=== PATIENT | female | born 1935 | race Caucasian/White ===

== ENCOUNTER 2017-07-06 12:10 | Emergency (ER) | payer MEDICARE ==
[~2017-07-06] VITALS: Ht 157.4 cm; Wt 54.4 kg
[~2017-07-06 12:10] MED LIST: GLUCOPHAGE1000 MG PO; GLUCOTROL XL2.5 MG PO; LIPITOR20 MG PO; LOPRESSOR50 MG PO; MONOPRIL10 MG PO
[2017-07-06 12:34] LABS: HEMOGLOBIN 8.3 g/dl (12.0-16.0); MEAN CELL VOLUME 114.4 fl (81.0-99.0); MEAN CORPUSCULAR HGB 35.2 pg (27.0-31.0); MEAN CORPUSCULAR HGB CONC 30.7 g/dl (33.0-37.0); MEAN PLATELET VOLUME 9.6 fl (9.6-12.3); PLATELET COUNT AUTOMATED 354 10*3/uL (130-400); RED BLOOD COUNT 2.36 10*6/uL (4.10-5.10); RED CELL DISTRI WIDTH 20.9 % (0-14.5); WHITE BLOOD COUNT 7.1 10*3/uL (4.8-10.8)
[2017-07-06 12:55] LABS: ALKALINE PHOSPHATASE 101 U/L (45-117); BUN 18 mg/dl (7-24); CHLORIDE 107 mmol/L (98-107); CREATININE 1.36 mg/dL (0.55-1.02); POTASSIUM 4.6 mmol/L (3.5-5.1); SGOT/AST 14 IU/L (3-35); SGPT/ALT 15 U/L (12-78); SODIUM 139 mmol/L (136-145); TOTAL PROTEIN 5.9 gm/dL (6.4-8.2)
[2017-07-06 12:56] LABS: TROPONIN I < 0.015 ng/ml (<0.045)
[2017-07-06 13:14] LABS: PLATELET SUFFICIENCY NORMAL (NORMAL); TOTAL CELLS COUNTED 100 #CELLS
[2017-07-06 13:15] LABS: POLYCHROMASIA SLIGHT
[2017-07-06 13:27] LABS: BILIRUBIN NEGATIVE (NEGATIVE); BLOOD NEGATIVE (NEGATIVE); CLARITY SL CLOUDY (CLEAR); COLOR YELLOW (YELLOW); GLUCOSE NEGATIVE (NEGATIVE); KETONE TRACE (NEGATIVE); LEUKO ESTERASE 1+ (NEGATIVE); NITRITE NEGATIVE (NEGATIVE); PH 5.5 (5.0-9.0); SPECIFIC GRAVITY 1.025 (1.005-1.030); UROBILINOGEN 0.2 E.U./dl (0.2-1.0)
[2017-07-06 13:37] LABS: BACTERIA 2+; EPITHELIAL CELLS 21-30
== END 2017-07-06 14:35 | disposition home or self-care (01) ==
LOC: ED 12:10
PROVIDERS: Emergency Medicine
DX: R55 Syncope and collapse (principal); Z90.710 Acquired absence of both cervix and uterus; Z79.899 Other long term (current) drug therapy

== ENCOUNTER 2020-01-22 16:10 | Emergency (ER) | payer MEDICARE ==
[~2020-01-22 16:10] MED LIST changes: +B12,B-12,B 12500 MC1 PO; +PHARMASSURE FO0.4 MG PO
[2020-01-22 16:56] LABS: BASO % 0.2 % (0.0-1.0); EOS # 0.1 10*3/uL (0.0-0.4); EOS % 1.4 % (1.0-4.0); HEMATOCRIT 28.9 % (37.0-47.0); LYMPH % 18.2 % (27.0-41.0); MEAN CORPUSCULAR HGB 28.7 pg (27.0-31.0); MEAN CORPUSCULAR HGB CONC 31.1 g/dl (33.0-37.0); MEAN PLATELET VOLUME 9.1 fl (9.6-12.3); MONO # 0.5 10*3/uL (0.1-1.0); MONO % 8.3 % (3.0-9.0); NEUT # 4.1 10*3/uL (2.3-7.9); NEUT % 71.7 % (47.0-73.0); PLATELET COUNT AUTOMATED 307 10*3/uL (130-400); RED BLOOD COUNT 3.14 10*6/uL (4.10-5.10); RED CELL DISTRI WIDTH 17.5 % (0-14.5); WHITE BLOOD COUNT 5.7 10*3/uL (4.8-10.8)
[2020-01-22 17:14] LABS: ALBUMIN 3.1 gm/dl (3.1-4.5); ALKALINE PHOSPHATASE 173 U/L (45-117); BUN 13 mg/dl (7-24); CHLORIDE 101 mmol/L (98-107); POTASSIUM 4.1 mmol/L (3.5-5.1); SGOT/AST 26 IU/L (3-35); SGPT/ALT 14 U/L (12-78); SODIUM 132 mmol/L (136-145); TOTAL PROTEIN 6.7 gm/dL (6.4-8.2); TROPONIN I < 0.015 ng/ml (<0.045)
[2020-01-22 17:18] LABS: ACT PARTIAL THROMBO TIME 22.8 SECONDS (20.0-32.1)
[2020-01-22 18:08] LABS: BILIRUBIN NEGATIVE (NEGATIVE); BLOOD NEGATIVE (NEGATIVE); CLARITY SL CLOUDY (CLEAR); COLOR YELLOW (YELLOW); GLUCOSE NEGATIVE (NEGATIVE); KETONE NEGATIVE (NEGATIVE); LEUKO ESTERASE NEGATIVE (NEGATIVE); NITRITE NEGATIVE (NEGATIVE); UROBILINOGEN 0.2 E.U./dl (0.2-1.0)
[2020-01-22 18:10] LABS: BACTERIA 1+; EPITHELIAL CELLS 41-50
== END 2020-01-22 21:45 | disposition short-term general hospital (02) ==
LOC: ED 16:10
PROVIDERS: Emergency Medicine
DX: G91.2 (Idiopathic) normal pressure hydrocephalus (principal); E78.00 Pure hypercholesterolemia, unspecified; I12.9 Hypertensive chronic kidney disease with stage 1 through stage 4 chronic kidney disease, or unspecified chronic kidney disease; E11.22 Type 2 diabetes mellitus with diabetic chronic kidney disease; N18.3 Chronic kidney disease, stage 3 (moderate); Z79.899 Other long term (current) drug therapy; Z90.710 Acquired absence of both cervix and uterus

== ENCOUNTER 2020-04-17 18:39 | Inpatient (IN) | payer MEDICARE ==
[2020-04-17] VITALS (10 sets, daily range): BP systolic 66–176; BP diastolic 41–84
[~2020-04-17] VITALS: Ht 157.5 cm; Wt 53.3 kg
--- NOTE | 2020-04-17 18:52 | NUR ---
LAB AT BEDSIDE.
--- NOTE | 2020-04-17 18:58 | NUR ---
EMESIS X2 YELLOW BILE.
[2020-04-17 19:13] LABS: MEAN CELL VOLUME 92.1 fl (81.0-99.0); MEAN CORPUSCULAR HGB 27.5 pg (27.0-31.0); MEAN CORPUSCULAR HGB CONC 29.9 g/dl (33.0-37.0); MEAN PLATELET VOLUME 9.6 fl (9.6-12.3); PLATELET COUNT AUTOMATED 184 10*3/uL (130-400); RED BLOOD COUNT 1.78 10*6/uL (4.10-5.10); WHITE BLOOD COUNT 5.9 10*3/uL (4.8-10.8)
[2020-04-17 19:17] LABS: HEMATOCRIT 16.4 % (37.0-47.0)
--- NOTE | 2020-04-17 19:24 | NUR ---
HEMOGLOBIN OF 4.9 HCT: 16.4
[2020-04-17 19:29] LABS: ACT PARTIAL THROMBO TIME 38.3 SECONDS (20.0-32.1); INTERNATIONAL NORM RATIO 1.4 (2.0-3.5)
[2020-04-17 19:32] LABS: ALBUMIN 1.7 gm/dl (3.1-4.5); ALKALINE PHOSPHATASE 56 U/L (45-117); BUN 20 mg/dl (7-24); CHLORIDE 122 mmol/L (98-107); CPK 40 U/L (26-192); CREATININE 1.09 mg/dL (0.55-1.02); SGOT/AST 9 IU/L (3-35); SGPT/ALT 17 U/L (12-78); TOTAL PROTEIN 3.8 gm/dL (6.4-8.2)
[2020-04-17 19:37] LABS: TOTAL CELLS COUNTED 100 #CELLS
[2020-04-17 19:39] LABS: BURR CELLS MODERATE; PLATELET SUFFICIENCY NORMAL (NORMAL); POTASSIUM 2.8 mmol/L (3.5-5.1); SODIUM 146 mmol/L (136-145)
[2020-04-17 19:40] LABS: TROPONIN I < 0.015 ng/ml (<0.045)
--- NOTE | 2020-04-17 20:01 | NUR ---
PT IN CT AT THIS TIME.
--- NOTE | 2020-04-17 20:20 | NUR ---
PT BACK FROM CT. HEMOCULT NEGATIVE.
--- NOTE | 2020-04-17 20:40 | NUR ---
[facility] CALLED TO SAY THEY NEED MORE TIME BEFORE PT COMES UPSTAIRS.
--- NOTE | 2020-04-17 20:46 | NUR ---
PT FAMILY DENIES WOUNDS. NO WOUNDS SEEN DURING EXAM.
--- NOTE | 2020-04-17 21:04 | NUR ---
CALLED [facility] WHO REPORTS THEY NEED MORE TIME BEFORE PT TRANSPORT.
[2020-04-17 21:07] LABS: BILIRUBIN Negative; BLOOD Negative (Negative); CLARITY Clear (Clear); COLOR Yellow (Yellow); GLUCOSE Negative; KETONE Negative; LEUKO ESTERASE 1+ (Negative); NITRITE Negative (Negative)
[2020-04-17 21:12] LABS: RBC 0-2 rbc/hpf (0-2)
[2020-04-17 21:13] LABS: BACTERIA 1+; MUCOUS 1+
--- NOTE | 2020-04-17 21:24 | NUR ---
PT ATTEMPTING TO GET OUT OF BED. REPEATING THAT SHE HAS TO URINATE. EXPLAINED TO PT SHE HAS HASSAN IN AND SHE IS ABLE TO URINATE WHEN SHE WANTS. PT APPEARS CONFUSED. WILL CONTINUE TO MONITOR.
--- NOTE | 2020-04-17 21:30 | NUR ---
A 84, admitted to [facility], under the services of JOSÉ MIGUEL Echevarria DO with a diagnosis of ACUTE BLOOD LOSS, ANEMIA. Chief complaint is FOUND ON FLOOR IN BATHROOM AT [facility]. Patient arrived via stretcher from ER. Monitor applied. Initial assessment completed. Vital signs taken and recorded. JOSÉ MIGUEL ECHEVARRIA DO notified of admission to the unit. Orders received. See assessment for past medical history, medications and allergies. Patient and/or family oriented to unit. [facility] visitation policy reviewed. Clothing/patient valuable form completed. IRENE MAURO
--- NOTE | 2020-04-17 22:02 | NUR ---
PT. UNSURE OF MEDICATIONS, UNABLE TO VERIFY AT THIS TIME.
[2020-04-18] VITALS (22 sets, daily range): BP systolic 142–181; BP diastolic 54–87
--- NOTE | 2020-04-18 05:20 | NUR ---
DR BRITT NOTIFIED OF BP 181/79. NEW ORDERS RECEIVED.
--- NOTE | 2020-04-18 06:15 | NUR ---
DR LOWE CALLED ABOUT MORNING LABS AND ORDER TO WAIT TO OBTAIN LABS WHEN BLOOD IS DONE INFUSING.
--- NOTE | 2020-04-18 07:39 | NUR ---
Shift chart check completed.24 HR chart check completed.
--- NOTE | 2020-04-18 07:45 | NUR ---
DR RAMOS NOTIFIED OF CONSULT BY BARREL PLANER. NO NEW ORDERS. TRANSFUSION COMPLETE AT 0745.
--- NOTE | 2020-04-18 07:49 | NUR ---
ON ASSESSMENT PATIENT IS RESTING ON HER SIDE IN BED, OCCASIONAL HIGH PITCHED WHIMPER BUT WHEN ASKED DOESN'T IDENTIFY ANY CERTAIN AREA OF PAIN. MLC INTACT RIJ. BED EXIT ALARM INTACT. HASSAN PATENT YELLOW URINE. ON QUESTIONING PATIENT UNABLE TO TELL ME WHERE SHE IS OR WHY SHE'S HERE. I DID ASK WHAT SHE TAKES FOR PAIN AT HOME AND SHE SAYS "ADVIL". WHEN I ASK HOW OFTEN SHE SAID "WHENEVER IT HURTS", BUT CAN'T BE ANY MORE SPECIFIC THAN THAT. SEE ALL APPROPRIATE INTERVENTIONS.
--- NOTE | 2020-04-18 08:13 | NUR ---
Occupational therapy order and nursing screen received. Will follow up with patient for completion of an OT evaluation. Thank you. Margie Rubalcava, OTR/L
[2020-04-18] MEDS ORDERED: LISINOPRIL10 M1 PO (08:47)
[2020-04-18] MEDS ORDERED: HYDRALAZINE HYD50 MG PO (08:48)
--- NOTE | 2020-04-18 08:50 | NUR ---
PHYSICAL THERAPY Nursing screen received and chart reviewed. Physical therapy order received. Will follow to complete PT evaluation. Thank you. Shayna Pope,PT,DPT
[2020-04-18] MEDS ORDERED: ADVIL200 MG PO (08:51)
--- NOTE | 2020-04-18 08:55 | NUR ---
I PHONED PT'S DAUGHTER BEAU AND MEDS RECONCILED WITH HER.
--- NOTE | 2020-04-18 09:00 | NUR ---
PHONE CONVERSATION WITH PT'S DAUGHTER ALSO REVEALS THAT DAUGHTER HAS CONCERNS ABOUT PT RETURNING TO HER HOME AGAIN. SHE SAID PT "TAKES NO MEDS ON HER OWN" AND HAS "[place]ALLY [place] IN THE PAST FEW MONTHS". SHE HAD BEEN FOUND "TURNING KITCHEN STOVE ON AND GOING TO BED BECAUSE SHE'S CHILLY." THIS WAS RELAYED TO THE MEDICAL TEAM.
--- NOTE | 2020-04-18 09:07 | NUR ---
ECHO BEING DONE AT THE BEDSIDE. , NURSE PRACTITIONER FOR DR RAMOS HAS VISITED, PLAN FOR EGD TOMORROW.
--- NOTE | 2020-04-18 10:32 | NUR ---
Spoke to daughter, Halley, regarding discharge planning. She states her mother lives at home alone and her and her brother stop over multiple times a day to check on her. Halley states she sets up her mother's medications and makes sure she takes them. Mother has a cane and a walker but refuses to use them. Daughter states her mother was in [facility] in January and was discharged to [facility] and [facility] when a bed became available. She states since her mother was in the hospital in January it has been a steady decline. She said she sets her mother's furnace to 75 degrees because she is always cold and was told by therapy she was turning the gas stove on and then going to sleep for the warmth. Daughter has lunch delivered as her mother will not cook for herself and then she brings her other meals. She states her mother will dress herself but will dress herself in the same clothes until someone tells her to change them. She states her and her brother were talking last night about the possibility of senior living placement. They are unsure whether assisted living or nursing facility. Discussed short term rehab and she is agreeable. When provided with a list of facilities she chose [facility] as that is close to where the patient lives. Discussed if family was to decide on LTC then the facility of their choice would start the LTC process. media planner / buyer/hoe worker notified.
--- NOTE | 2020-04-18 10:33 | NUR ---
PT ACCOMPANIED TO/FROM RADIOLOGY FOR CT ABD/PELVIS WITH IV CONTRAST. TOLERATED WELL. POSITIONED FOR COMFORT, NO BM'S AT THIS TIME.
--- NOTE | 2020-04-18 10:45 | NUR ---
Patient and family requesting a referral to [facility]. Contacted facilitly and faxed initial referral. Will wait on physical therapy eval when patient is able to participate and covid test results. Waiting on review
[2020-04-18 11:26] LABS: BASO % 0.1 % (0.0-1.0); EOS % 0.1 % (1.0-4.0); HEMATOCRIT 39.2 % (37.0-47.0); LYMPH # 0.9 10*3/uL (1.3-4.4); LYMPH % 8.2 % (27.0-41.0); MEAN CORPUSCULAR HGB 28.9 pg (27.0-31.0); MEAN CORPUSCULAR HGB CONC 33.4 g/dl (33.0-37.0); MEAN PLATELET VOLUME 9.5 fl (9.6-12.3); MONO # 0.9 10*3/uL (0.1-1.0); MONO % 8.5 % (3.0-9.0); NEUT # 8.9 10*3/uL (2.3-7.9); NEUT % 82.8 % (47.0-73.0); RED BLOOD COUNT 4.53 10*6/uL (4.10-5.10); RED CELL DISTRI WIDTH 16.3 % (0-14.5); WHITE BLOOD COUNT 10.8 10*3/uL (4.8-10.8)
[2020-04-18 11:28] LABS: MEAN CELL VOLUME 86.5 fl (81.0-99.0); PLATELET COUNT AUTOMATED 234 10*3/uL (130-400)
[2020-04-18 11:43] LABS: ALBUMIN 2.6 gm/dl (3.1-4.5); CREATININE 1.66 mg/dL (0.55-1.02); TOTAL PROTEIN 5.8 gm/dL (6.4-8.2)
--- NOTE | 2020-04-18 11:46 | NUR ---
[facility] CALLED/TALKED WITH DR COMBS WITH RESULTS OF CT ABDOMEN AND HE HAS CALLED DR CARDOSO. DR RAMOS HAS VISITED.
[2020-04-18 11:50] LABS: THYROID STIM HORMONE (HS) 2.7 uIU/ml (0.358-4.75)
--- NOTE | 2020-04-18 11:51 | NUR ---
PHYSICAL THERAPY Addressed PT order this date. Spoke with [facility] regarding patient. Patient is not medically appropriate and may be transfered to another facility for further care. Discharge skilled PT orders at this time. Shayna Pope,PT,DPT
[2020-04-18 12:03] LABS: POTASSIUM 5.8 mmol/L (3.5-5.1)
--- NOTE | 2020-04-18 12:12 | NUR ---
OT NOTE Occupational therapy order received and chart reviewed. Spoke with primary nurse Caitie CONRAD in [facility]. Per discussion with Caitie CONRAD, patient is not medically appropriate for an OT evaluation and is a possible transfer for a higher level of care. Will discharge OT orders at this time. Thank you. Margie Rubalcava, OTR/L
[2020-04-18 12:26] LABS: VITAMIN D, 25-HYDROXY 13.7 ng/mL (30-100)
--- NOTE | 2020-04-18 13:06 | NUR ---
ARRANGEMENTS WERE BEING MADE TO TRANSFER PT TO [facility]. DAUGHTER CALLED BACK AND SPOKE WITH DR CARDOSO. PT WILL NOT BE TRANSFERRED OUT AND CODE STATUS WILL BE CHANGED TO DNR-CC WITH A CONSULT FOR HOSPICE. HEPARIN DRIP HAD BEEN STARTED AND IS NOW DISCONTINUED.
--- NOTE | 2020-04-18 13:45 | NUR ---
Spoke to daughter, Halley, regarding hospice. She is currently at work. 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 She is trying to get out of work. When provided with a list of agencies she chose [employer]. piggery worker notified. She asked if her , herself, and her brother would be able to come into the hospital. Asked Director of [facility] regarding family coming in to see patient as she is going to be made hospice. Family has been cleared to come in to see patient. [facility] notified.
--- NOTE | 2020-04-18 13:52 | NUR ---
STREETCAR OPERATOR FAXED REFERRAL TO [facility].
--- NOTE | 2020-04-18 14:50 | NUR ---
FAMILY HAS ARRIVED.
--- NOTE | 2020-04-18 17:39 | NUR ---
MORPHINE 2MG IV FOR GENERALIZED DISCOMFORT.
--- NOTE | 2020-04-18 17:49 | NUR ---
[facility] NURSE HERE.
--- NOTE | 2020-04-18 18:23 | NUR ---
RESTING EASIER SINCE EARLIER MORPHINE. HOSPICE WILL KEEP PT ON "PALLIATIVE" AND MAYBE OPTICAL ELEMENT COATER PT UPON DISCHARGE.
--- NOTE | 2020-04-18 18:43 | NUR ---
PT SLEEPING EASILY AT THIS TIME. FAMILY HAS GONE HOME. BED EXIT ALARM IS ACTIVATED.
--- NOTE | 2020-04-18 23:31 | NUR ---
MEDICATED WITH MORPHINE PER PRN ORDER FOR S/S OF PAIN.
[2020-04-19] VITALS: BP 124/78
--- NOTE | 2020-04-19 00:10 | NUR ---
MORPHINE EFFECTIVE FOR PAIN.
[2020-04-19 04:00] VITALS: BP 136/72
[2020-04-19 08:00] VITALS: BP 157/82
--- NOTE | 2020-04-19 08:22 | NUR ---
Awake, alert. Dtr. Called in and update was given. Complete bed bath and up to chair.
--- NOTE | 2020-04-19 09:36 | NUR ---
Spoke to daughter, Halley, regarding discharge planning. She is on the fence between [facility] because she thinks her mom would be more comfortable there since she is from [place] but then [facility] would be nice because she was just there a month ago and it is very close to her and her brother. Explained a referral was made to the [facility] to see where there bed availability is. Explained CM will reach out to her to discuss who has bed availability. Discussed palliative care being able to follow in an [place] facility but not in a [place] facility. She is not sure whether she should have signed on with palliative care. Explained even though she signed on with them she can revoke those services at any point in time. She verbalized an understanding. town planner following for referral to the [facility] to check bed availability.
--- NOTE | 2020-04-19 10:27 | NUR ---
Spoke to daughter, Halley, regarding whether or not she wished for her mother to have treatment for the blood clots with vascular surgery. Daughter states if there is something that can be done here at the hospital she is okay with that, but she doesn't want her mother transferred to another facility. She states "she is ready when it is her time. She just wants to be kept comfortable and I want to abide by her wishes." Hospitalist nurse director notified.
[2020-04-19 10:59] LABS: BASO % 0.3 % (0.0-1.0); EOS # 0.2 10*3/uL (0.0-0.4); EOS % 1.6 % (1.0-4.0); HEMATOCRIT 41.5 % (37.0-47.0); LYMPH % 9.5 % (27.0-41.0); MEAN CELL VOLUME 86.6 fl (81.0-99.0); MEAN CORPUSCULAR HGB CONC 32.3 g/dl (33.0-37.0); MEAN PLATELET VOLUME 9.5 fl (9.6-12.3); MONO # 0.7 10*3/uL (0.1-1.0); MONO % 6.7 % (3.0-9.0); NEUT # 8.8 10*3/uL (2.3-7.9); NEUT % 81.7 % (47.0-73.0); PLATELET COUNT AUTOMATED 225 10*3/uL (130-400); RED BLOOD COUNT 4.79 10*6/uL (4.10-5.10); RED CELL DISTRI WIDTH 17.2 % (0-14.5); WHITE BLOOD COUNT 10.8 10*3/uL (4.8-10.8)
[2020-04-19 11:14] LABS: CREATININE 1.94 mg/dL (0.55-1.02); POTASSIUM 4.9 mmol/L (3.5-5.1)
[2020-04-19 12:00] VITALS: BP 155/83
--- NOTE | 2020-04-19 13:18 | NUR ---
Updated clinicals faxed to [facility].
--- NOTE | 2020-04-19 13:38 | NUR ---
Squirming around in chair, Holding pubis stating "it hurts so bad, I have to pee" Rees cath removed as comfort measure. Then assisted to BSC , no urine or BM. Placed to easy chair and currently resting comfortably. Monitor removed.
[2020-04-19 16:00] VITALS: BP 122/75
[2020-04-19 20:00] VITALS: BP 137/75
[2020-04-20] VITALS: BP 101/68
--- NOTE | 2020-04-20 01:03 | NUR ---
PATIENT TAKEN TO ROOM 524 VIA BED. REPORT GIVEN TO PRIYA CONRAD.
--- NOTE | 2020-04-20 01:05 | NUR ---
RECEIVED REPORT FROM HOUSTON NOLAND. PATIENT AWAKE. ANSWERS YES/NO QUESTIONS. DENIES PAIN. RESPIRATIONS EASY, NON LABORED. VSS. HEPARIN DRIP INFUSING. NO SIGNS OF DISTRESS. BED IN LOWEST POSITION, CALL LIGHT WITHIN REACH. BED ALARM ON. WILL CONTINUE TO MONITOR.
--- NOTE | 2020-04-20 04:00 | NUR ---
PATIENT SLEEPING ON LEFT SIDE. RESPIRATIONS EASY, NON LABORED. NO SIGNS OF DISTRESS. BED IN LOWEST POSITION,CALL LIGHT WITHIN REACH. BED ALARM ON. WILL CONTINUE TO MONITOR.
[2020-04-20 05:41] LABS: CREATININE 1.86 mg/dL (0.55-1.02); INTERNATIONAL NORM RATIO 1.2 (2.0-3.5); POTASSIUM 4.3 mmol/L (3.5-5.1)
--- NOTE | 2020-04-20 05:54 | NUR ---
heparin stopped at this time.
[2020-04-20 06:19] LABS: BASO % 0.3 % (0.0-1.0); EOS # 0.3 10*3/uL (0.0-0.4); EOS % 3.3 % (1.0-4.0); HEMATOCRIT 37.2 % (37.0-47.0); LYMPH # 1.8 10*3/uL (1.3-4.4); LYMPH % 18.7 % (27.0-41.0); MEAN CELL VOLUME 87.5 fl (81.0-99.0); MEAN PLATELET VOLUME 9.6 fl (9.6-12.3); MONO # 0.6 10*3/uL (0.1-1.0); MONO % 6.6 % (3.0-9.0); NEUT # 6.6 10*3/uL (2.3-7.9); NEUT % 70.9 % (47.0-73.0); PLATELET COUNT AUTOMATED 224 10*3/uL (130-400); RED BLOOD COUNT 4.25 10*6/uL (4.10-5.10); RED CELL DISTRI WIDTH 17.4 % (0-14.5); WHITE BLOOD COUNT 9.4 10*3/uL (4.8-10.8)
--- NOTE | 2020-04-20 06:27 | NUR ---
PATIENT APTT CRITICALLY HIGH, >139.0. JONATHAN FROM LAB RECOMMENDS A REDRAW NOT FROM PATIENTS LINE TO CONFIRM ACCURACY. ORDER PLACED.
--- NOTE | 2020-04-20 07:50 | NUR ---
24 HR chart check completed.
[2020-04-20 08:00] VITALS: BP 98/51
--- NOTE | 2020-04-20 08:00 | NUR ---
Patient resting quietly with no c/o discomfort. Respirations easy and regular. Vital signs stable. No overt distress. RAMONA ROGERS
--- NOTE | 2020-04-20 08:00 | NUR ---
PHYSICAL THERAPY Physical Therapy evaluation completed on 5th floor with full evaluation to follow. Recommend physical therapy per plan of care and SNF upon discharge pending progress and pt/family input with regards to medical status. Thank you for this referral. Wendi Doyle PT
--- NOTE | 2020-04-20 08:05 | NUR ---
Occupational Therapy evaluation completed on five with full evaluation to follow. Recommend occupational therapy per plan of care and SNF upon discharge. Thank you for this referral. Margie Rubalcava OTR/L
--- NOTE | 2020-04-20 08:30 | NUR ---
CM in to see patient. She is sitting up in her bedside chair eating breakfast. No new needs or request at this time. When medically stable she will be discharged to [facility]. tool planner following.
--- NOTE | 2020-04-20 10:28 | NUR ---
clinical updates, therapy evaluation and covid results faxed to [facility]. Waiting on [place] pass/rr to clear.
[2020-04-20 12:00] VITALS: BP 137/64
--- NOTE | 2020-04-20 12:00 | NUR ---
Patient resting quietly with no c/o discomfort. Respirations easy and regular. Vital signs stable. No overt distress. RAMONA ROGERS
--- NOTE | 2020-04-20 12:30 | NUR ---
SON UPDATED ON PT'S CONDITION.
[2020-04-20 16:00] VITALS: BP 148/62
--- NOTE | 2020-04-20 16:00 | NUR ---
Patient resting quietly with no c/o discomfort. Respirations easy and regular. Vital signs stable. No overt distress. RAMONA ROGERS
--- NOTE | 2020-04-20 17:00 | NUR ---
DAUGHTER UPDATED ON PT'S CONDITION.
--- NOTE | 2020-04-20 19:40 | NUR ---
PATIENT PULLING AT HER HER MULTILUMEN IN HER RIJ. DRESSING RIPPED OFF. PATIENT STATES IF SHE COULD JUST GET SOME SISSORS SHE COULD GET IT OUT OF HER NECK. NOTIFIED DR. HERNDON. ASKED IF THIS NURSE COULD REMOVE RIJ AND PLACE A PERIPHERAL IV INSTEAD SINCE PATIENT IS NO LONGER IN THE [facility] AND IS NOT RECEIVING ANY MEDICATIONS REQUIRING A MULTILUMEN. PER DR. HERNDON, DO NOT REMOVE THE MULTILUMEN RIGHT NOW AND HE WOULD GET BACK TO ME. PATIENTS DRESSING CHANGED. REMINDED PATIENT TO LEAVE THE SITE ALONE AND THAT SHE IS RECEIVING BLOOD THINNERS AND IF SHE WAS TO RIP THE SITE OUT SHE COULD BLEED OUT. PATIENT VOICED UNDERSTANDING. PATIENT HELPED BACK INTO BED AND REPOSITIONED. BED IN LOWEST POSITION,CALL LIGHT WITHIN REACH. BED ALARM ON. WILL CONTINUE TO MONITOR.
[2020-04-20 20:00] VITALS: BP 174/84; BP 190/73
--- NOTE | 2020-04-20 20:00 | NUR ---
DR. BRITT ON FLOOR. PER HER OKAY TO REMOVE PATIENT MULTILUMEN IF WE CAN GET OTHER ACCESS.
--- NOTE | 2020-04-20 20:30 | NUR ---
NOTIFIED DR. HERNDON OF PATIENTS BLOOD PRESSURE. PATIENT TO TAKE 25MG OF APRESOLINE AT 2[address]. [address] HERNDON JUST RECHECK PRESSURE AFTER PATIENT TAKES HER NIGHT TIME MEDICATIONS. WILL CONTINUE TO MONITOR.
--- NOTE | 2020-04-20 21:00 | NUR ---
UNABLE TO OBTAIN IV. MULTILUMEN LEFT IN. NOTIFIED DR. HERNDON.
[2020-04-21] VITALS: BP 158/78
--- NOTE | 2020-04-21 | NUR ---
PATIENT SLEEPING. NO SIGNS OF DISTRESS. VSS. RESPIRATIONS EASY, NON LABORED. MULTILUMEN INTACT. BED IN LOWEST POSITION,CALL LIGHT WITHIN REACH. BED ALARM ON WILL CONTINUE TO MONITOR.
[2020-04-21 06:29] LABS: BASO % 0.4 % (0.0-1.0); EOS # 0.3 10*3/uL (0.0-0.4); HEMATOCRIT 37.9 % (37.0-47.0); LYMPH # 1.3 10*3/uL (1.3-4.4); LYMPH % 18.9 % (27.0-41.0); MEAN CELL VOLUME 87.9 fl (81.0-99.0); MEAN CORPUSCULAR HGB 28.3 pg (27.0-31.0); MEAN CORPUSCULAR HGB CONC 32.2 g/dl (33.0-37.0); MEAN PLATELET VOLUME 9.7 fl (9.6-12.3); MONO # 0.6 10*3/uL (0.1-1.0); MONO % 8.4 % (3.0-9.0); NEUT # 4.7 10*3/uL (2.3-7.9); NEUT % 68.2 % (47.0-73.0); PLATELET COUNT AUTOMATED 238 10*3/uL (130-400); RED BLOOD COUNT 4.31 10*6/uL (4.10-5.10); RED CELL DISTRI WIDTH 17.3 % (0-14.5); WHITE BLOOD COUNT 6.8 10*3/uL (4.8-10.8)
[2020-04-21 06:54] LABS: CREATININE 1.81 mg/dL (0.55-1.02); POTASSIUM 4.1 mmol/L (3.5-5.1)
[2020-04-21 07:05] LABS: INTERNATIONAL NORM RATIO 2.9 (2.0-3.5)
--- NOTE | 2020-04-21 07:10 | NUR ---
Patient updated clinicals faxed to [facility] for review. Waiting on [place] passrr to clear
--- NOTE | 2020-04-21 07:30 | NUR ---
TOOK OVER CARE OF PT AT THIS TIME. PT RESTING IN BED. RESPIRATIONS EASY AND UNLABORED ON ROOM AIR. NO S/S OF DISTRESS. SAFETY MEASURES IN PLACE. CALL LIGHT IN REACH
--- NOTE | 2020-04-21 07:45 | NUR ---
DR THORPE NOTIFIED OF CRITICAL APTT OF 107.4. HEPARIN DRIP STOPPED AT THIS TIME FOR 60 MINUTES AND WILL DECREASE RATE PER ORDERS ON EMAR.
[2020-04-21 07:46] VITALS: BP 146/74
--- NOTE | 2020-04-21 08:33 | NUR ---
Patient is unable to go to [facility] in [place], therfore she is being referred to [facility]. manager installation notified.
--- NOTE | 2020-04-21 10:56 | NUR ---
patient has been accepted to [facility], pass/rr complete, 3 night stay complete, covid negative. Patient can go when medically stable for discharge.
[2020-04-21] MEDS ORDERED: FLAGYL500 MG PO (11:37)
[2020-04-21] MEDS ORDERED: WARFARIN SODIU2.5 MG PO (11:37)
[2020-04-21] MEDS ORDERED: CIPRO500 MG PO (11:37)
[2020-04-21 12:00] VITALS: BP 113/57
--- NOTE | 2020-04-21 12:30 | NUR ---
Patient is discharged to [facility] [place] at 2PM. NH, nursing/ship steward and daughter all notified. Discharge information faxed to facility.
--- NOTE | 2020-04-21 12:40 | NUR ---
REPORT CALLED TO NURSING AT [facility].
--- NOTE | 2020-04-21 13:00 | NUR ---
RIJ DISCONTINUED AT THIS TIME. PT TOLERATED WELL. PRESSURE DRESSING APPLIED. CATHETER IN TACT.
--- NOTE | 2020-04-21 14:00 | NUR ---
Discharge instructions reviewed with patient/family. Patient receptive and verbalizes understanding. Follow-up care arranged. Written instructions given to patient/family. CHAN GAMEZ
--- NOTE | 2020-04-21 14:00 | NUR ---
PT LEAVES AT THIS TIME VIA [facility].
== END 2020-04-21 14:00 | disposition other institution (70) | DRG 871 ==
LOC: ED 18:39 → ICCU 20:28 → EDHOLD 20:28 → ICCU 20:33 → 5E 04-20 00:49
PROVIDERS: Emergency Medicine; Internal Medicine; Student in an Organized Health Care Education/Training Program; ADMIT Family Medicine; ATTEND Family Medicine
PROC: 05HY33Z Insertion of Infusion Device into Upper Vein, Percutaneous Approach (ICD-10-PCS; principal; 2020-04-17)
PROC: 30233N1 Transfusion of Nonautologous Red Blood Cells into Peripheral Vein, Percutaneous Approach (ICD-10-PCS; principal; 2020-04-17)
DX: A41.9 Sepsis, unspecified organism (principal); G93.41 Metabolic encephalopathy; E43 Unspecified severe protein-calorie malnutrition; R65.21 Severe sepsis with septic shock; I82.220 Acute embolism and thrombosis of inferior vena cava; I26.99 Other pulmonary embolism without acute cor pulmonale; N30.00 Acute cystitis without hematuria; E87.0 Hyperosmolality and hypernatremia; K92.2 Gastrointestinal hemorrhage, unspecified; Z68.21 Body mass index [BMI] 21.0-21.9, adult; E87.6 Hypokalemia; E78.5 Hyperlipidemia, unspecified; K52.9 Noninfective gastroenteritis and colitis, unspecified; E11.65 Type 2 diabetes mellitus with hyperglycemia; R55 Syncope and collapse; M50.30 Other cervical disc degeneration, unspecified cervical region; E83.51 Hypocalcemia; R79.1 Abnormal coagulation profile; Z66 Do not resuscitate; Z51.5 Encounter for palliative care; E87.8 Other disorders of electrolyte and fluid balance, not elsewhere classified; Z20.828 Contact with and (suspected) exposure to other viral communicable diseases; E11.22 Type 2 diabetes mellitus with diabetic chronic kidney disease; N18.30 Chronic kidney disease, stage 3 unspecified; I12.9 Hypertensive chronic kidney disease with stage 1 through stage 4 chronic kidney disease, or unspecified chronic kidney disease; Z91.81 History of falling; Z90.710 Acquired absence of both cervix and uterus; Z98.42 Cataract extraction status, left eye; Z98.41 Cataract extraction status, right eye; Z82.49 Family history of ischemic heart disease and other diseases of the circulatory system; Z83.3 Family history of diabetes mellitus; Z79.899 Other long term (current) drug therapy

== ENCOUNTER 2020-06-30 15:11 | Inpatient (IN) | payer MEDICARE ==
[~2020-06-30] VITALS: Ht 157.5 cm; Wt 63.5 kg
[~2020-06-30 15:11] MED LIST changes: +ADVIL200 MG PO; +CIPRO500 MG PO; +FLAGYL500 MG PO; +HYDRALAZINE HYD50 MG PO; +LISINOPRIL10 M1 PO; +WARFARIN SODIU2.5 MG PO
[2020-06-30 15:14] VITALS: BP 116/57
--- NOTE | 2020-06-30 15:18 | NUR ---
DAUGHTER STATES PT GETS DEHYDRATED FREQUENTLY.
--- NOTE | 2020-06-30 16:10 | NUR ---
MULTIPLE IV ATTEMPTS WITH NO SUCCESS BY THIS RN. WILL ASK ANOTHER NURSE TO TRY
[2020-06-30 16:22] VITALS: BP 105/52
--- NOTE | 2020-06-30 16:22 | NUR ---
RESTING IN BED IN NO ACUTE DISTRESS. SIDERAILS UP X2
[2020-06-30 17:46] LABS: BASO % 0.3 % (0.0-1.0); HEMATOCRIT 39.5 % (37.0-47.0); LYMPH # 1.5 10*3/uL (1.3-4.4); LYMPH % 37.6 % (27.0-41.0); MEAN CORPUSCULAR HGB 28.7 pg (27.0-31.0); MEAN CORPUSCULAR HGB CONC 32.7 g/dl (33.0-37.0); MONO # 0.3 10*3/uL (0.1-1.0); MONO % 8.5 % (3.0-9.0); NEUT # 2.1 10*3/uL (2.3-7.9); NEUT % 52.3 % (47.0-73.0); PLATELET COUNT AUTOMATED 317 10*3/uL (130-400); RED BLOOD COUNT 4.49 10*6/uL (4.10-5.10); RED CELL DISTRI WIDTH 20.8 % (0-14.5)
--- NOTE | 2020-06-30 17:51 | NUR ---
MULTIPLE ATTEMPTS TO STRAIGHT CATH PT BY X2 NURSES AND WAS UNSUCCESSFUL. PT ASKING TO STOP DUE TO PAIN. STATES SHE IS UNABLE TO WALK TO GIVE URINE
[2020-06-30 18:06] LABS: ALBUMIN 2.6 gm/dl (3.1-4.5); ALKALINE PHOSPHATASE 59 U/L (45-117); BUN 41 mg/dl (7-24); CHLORIDE 103 mmol/L (98-107); CREATININE 2.02 mg/dL (0.55-1.02); LIPASE 113 U/L (73-393); POTASSIUM 4.2 mmol/L (3.5-5.1); SGOT/AST 23 IU/L (3-35); SGPT/ALT 12 U/L (12-78); SODIUM 133 mmol/L (136-145)
[2020-06-30 18:10] LABS: TROPONIN I < 0.015 ng/ml (<0.045)
[2020-06-30 18:19] LABS: ACT PARTIAL THROMBO TIME 107.8 SECONDS (20.0-32.1); INTERNATIONAL NORM RATIO 9.3 (2.0-3.5)
[2020-06-30 18:37] VITALS: BP 102/54
[2020-06-30 19:40] VITALS: BP 114/86
[2020-06-30 22:00] VITALS: BP 134/86
[2020-06-30 23:09] LABS: BILIRUBIN Negative (Negative); BLOOD Negative (Negative); CLARITY Cloudy (Clear); COLOR Yellow (Yellow); GLUCOSE Negative (Negative); KETONE Trace (Negative); LEUKO ESTERASE 2+ (Negative); NITRITE Negative (Negative); UROBILINOGEN 0.2 E.U./dl (0.0-1.0)
--- NOTE | 2020-06-30 23:22 | NUR ---
1939- ALERT AND PLEASENTLY CONFUSED. SKIN COOL AND DRY. RESPIRATIONS EVEN AND UNLABORED. LS DIMINSHED. DENYING ANY CURRENT PAIN. PULLED IV OUT. LININ CHANGE COMPLETE RIGHT UPPER ARM PLACED WITH OUT DIFFICULTY 2124- IV REMOVED BY PT. 22 LEFT FOREARM PLACED BY THIS RN. MEDICATED PER ORDER. 2249- STRAIGHT CATH FOR URINE SPECIMEN.
[2020-06-30 23:27] LABS: BACTERIA 2+; WBC 16-20 wbc/hpf (0-5)
[2020-06-30 23:49] VITALS: BP 142/63
[2020-07-01 02:58] VITALS: BP 114/63
--- NOTE | 2020-07-01 05:14 | NUR ---
PT SLEEPING IN BED. NO SIGNS OF ACUTE DISTRESS NOTED AT THIS TIME. WILL CONTINUE TO MONITOR. VSS.
[2020-07-01 05:15] VITALS: BP 154/62
[2020-07-01 05:57] LABS: ALBUMIN 2.3 gm/dl (3.1-4.5); CREATININE 1.63 mg/dL (0.55-1.02); POTASSIUM 3.9 mmol/L (3.5-5.1); TOTAL PROTEIN 5.6 gm/dL (6.4-8.2)
[2020-07-01 06:36] LABS: BASO % 0.3 % (0.0-1.0); EOS # 0.1 10*3/uL (0.0-0.4); EOS % 1.5 % (1.0-4.0); HEMATOCRIT 37.7 % (37.0-47.0); LYMPH # 1.1 10*3/uL (1.3-4.4); LYMPH % 27.6 % (27.0-41.0); MEAN CELL VOLUME 89.5 fl (81.0-99.0); MEAN CORPUSCULAR HGB CONC 32.4 g/dl (33.0-37.0); MEAN PLATELET VOLUME 9.5 fl (9.6-12.3); MONO # 0.3 10*3/uL (0.1-1.0); MONO % 8.7 % (3.0-9.0); NEUT # 2.4 10*3/uL (2.3-7.9); NEUT % 61.4 % (47.0-73.0); PLATELET COUNT AUTOMATED 296 10*3/uL (130-400); RED BLOOD COUNT 4.21 10*6/uL (4.10-5.10); RED CELL DISTRI WIDTH 20.7 % (0-14.5); WHITE BLOOD COUNT 3.9 10*3/uL (4.8-10.8)
[2020-07-01 07:12] LABS: INTERNATIONAL NORM RATIO > 9.3 (2.0-3.5)
[2020-07-01 10:08] VITALS: BP 164/60
--- NOTE | 2020-07-01 11:11 | NUR ---
NISA FROM JONY CONRAD
[2020-07-01 11:54] VITALS: BP 135/76
--- NOTE | 2020-07-01 11:58 | NUR ---
In to see pt at this time.Pt is drowsy and confused.Pt can state name and states she wants to sleep at this time.Pt states she wants to sleep at this time.No breakdown noted on skin at this time.Pt has brief which is dry and intact at this time.Pt has iv on left arm which is wrapped at this time and lung sounds are diminshed at this time.
--- NOTE | 2020-07-01 12:07 | NUR ---
in to see pt and stated pt to be discharged back to [facility] as long as blood sugar is good at this time.
--- NOTE | 2020-07-01 12:33 | NUR ---
Gave report to Lesa ricardo from [employer].
--- NOTE | 2020-07-01 12:40 | NUR ---
Attempted to call md at this time and no answer.Spoke with and stated they would let know at this time.
[2020-07-01] MEDS ORDERED: LEVOFLOXACIN500 MG PO (12:48)
--- NOTE | 2020-07-01 13:30 | NUR ---
Spoke with Lesa about ride at this time and stated she would call back with ride information at this time.
[2020-07-01 14:00] VITALS: BP 132/78
--- NOTE | 2020-07-01 14:15 | NUR ---
Iv site removed at this time and ape gauze dressing applied and pressure held at this time.
--- NOTE | 2020-07-01 14:20 | NUR ---
Pt left at this time in wheelchair and paperwork with pt.Pt left in van at this time.Mask on pt at this time.
--- NOTE | 2020-07-01 14:24 | NUR ---
Report given to Lesa from [facility] at this time.
== END 2020-07-01 16:15 | disposition home or self-care (01) | DRG 682 ==
LOC: ED 15:11 → EDHOLD 18:56
PROVIDERS: Emergency Medicine; Internal Medicine; ADMIT Internal Medicine; ATTEND Internal Medicine
DX: N17.0 Acute kidney failure with tubular necrosis (principal); E43 Unspecified severe protein-calorie malnutrition; I82.220 Acute embolism and thrombosis of inferior vena cava; J18.1 Lobar pneumonia, unspecified organism; E87.1 Hypo-osmolality and hyponatremia; E78.5 Hyperlipidemia, unspecified; R79.1 Abnormal coagulation profile; D70.3 Neutropenia due to infection; F03.90 Unspecified dementia, unspecified severity, without behavioral disturbance, psychotic disturbance, mood disturbance, and anxiety; I12.9 Hypertensive chronic kidney disease with stage 1 through stage 4 chronic kidney disease, or unspecified chronic kidney disease; E11.22 Type 2 diabetes mellitus with diabetic chronic kidney disease; N18.32 Chronic kidney disease, stage 3b; Z20.828 Contact with and (suspected) exposure to other viral communicable diseases; Z79.84 Long term (current) use of oral hypoglycemic drugs; Z90.710 Acquired absence of both cervix and uterus; Z79.899 Other long term (current) drug therapy; Z79.01 Long term (current) use of anticoagulants; Z82.49 Family history of ischemic heart disease and other diseases of the circulatory system

== ENCOUNTER 2020-09-08 01:32 | Emergency (ER) | payer MEDICARE ==
[~2020-09-08] VITALS: Wt 47.7 kg
[~2020-09-08 01:32] MED LIST changes: +LEVOFLOXACIN500 MG PO
== END 2020-09-08 03:23 | disposition designated cancer center or children's hospital (05) ==
LOC: ED 01:32
DX: S00.93XA Contusion of unspecified part of head, initial encounter (principal); S00.81XA Abrasion of other part of head, initial encounter; I10 Essential (primary) hypertension; E11.9 Type 2 diabetes mellitus without complications; E78.00 Pure hypercholesterolemia, unspecified; Z79.01 Long term (current) use of anticoagulants; Z79.899 Other long term (current) drug therapy; Z79.84 Long term (current) use of oral hypoglycemic drugs; W05.0XXA Fall from non-moving wheelchair, initial encounter; Y93.89 Activity, other specified; Y92.89 Other specified places as the place of occurrence of the external cause; Y99.8 Other external cause status

== ENCOUNTER 2021-10-24 04:14 | Emergency (ER) | payer MEDICARE ==
[~2021-10-24] VITALS: Ht 157.4 cm; Wt 59.5 kg
[2021-10-24] MEDS ORDERED: Coumadin2 MG PO (04:39)
[2021-10-24 04:43] LABS: BASO % 0.5 % (0.0-1.0); EOS # 0.1 10*3/uL (0.0-0.4); EOS % 2.5 % (1.0-4.0); HEMATOCRIT 41.4 % (37.0-47.0); LYMPH # 2.7 10*3/uL (1.3-4.4); LYMPH % 48.2 % (27.0-41.0); MEAN CELL VOLUME 95.2 fl (81.0-99.0); MEAN CORPUSCULAR HGB 30.6 pg (27.0-31.0); MEAN CORPUSCULAR HGB CONC 32.1 g/dl (33.0-37.0); MEAN PLATELET VOLUME 9.4 fl (9.6-12.3); MONO # 0.5 10*3/uL (0.1-1.0); MONO % 9.2 % (3.0-9.0); NEUT # 2.2 10*3/uL (2.3-7.9); NEUT % 39.2 % (47.0-73.0); PLATELET COUNT AUTOMATED 298 10*3/uL (130-400); RED BLOOD COUNT 4.35 10*6/uL (4.10-5.10); RED CELL DISTRI WIDTH 13.6 % (0-14.5); WHITE BLOOD COUNT 5.6 10*3/uL (4.8-10.8)
[2021-10-24] MEDS ORDERED: Coumadin3 MG PO (04:43)
[2021-10-24] MEDS ORDERED: FUROSEMIDE40 MG PO (04:46)
[2021-10-24] MEDS ORDERED: POTASSIUM CHLO10 ME5 PO (04:47)
[2021-10-24] MEDS ORDERED: TRAZODONE50 MG PO (04:48)
[2021-10-24 04:57] LABS: CREATININE 1.75 mg/dL (0.55-1.02); POTASSIUM 3.7 mmol/L (3.5-5.1)
== END 2021-10-24 07:17 ==
LOC: ED 04:14
PROVIDERS: Emergency Medicine
DX: S00.03XA Contusion of scalp, initial encounter (principal); Z79.899 Other long term (current) drug therapy; Z90.710 Acquired absence of both cervix and uterus; Z98.890 Other specified postprocedural states; W18.39XA Other fall on same level, initial encounter; Y93.89 Activity, other specified; Y92.89 Other specified places as the place of occurrence of the external cause; Y99.8 Other external cause status

== ENCOUNTER 2021-12-18 18:23 | Emergency (ER) | payer MEDICARE ==
[~2021-12-18] VITALS: Ht 157.4 cm; Wt 56.7 kg
[~2021-12-18 18:23] MED LIST changes: +Coumadin2 MG PO; +Coumadin3 MG PO; +FUROSEMIDE40 MG PO; +POTASSIUM CHLO10 ME5 PO; +TRAZODONE50 MG PO
== END 2021-12-18 21:12 | disposition home or self-care (01) ==
LOC: ED 18:23
DX: M25.551 Pain in right hip (principal); W18.39XA Other fall on same level, initial encounter; Y93.89 Activity, other specified; Y92.89 Other specified places as the place of occurrence of the external cause; Y99.8 Other external cause status